=== PATIENT | female | born 2000 | race Caucasian/White ===

== ENCOUNTER 2022-10-18 15:50 | Emergency (ER) | payer BC, SELFPAY ==
[2022-10-18 15:58] VITALS: BP 105/76; PULSE 61; RESP 18; TEMP 36.7; O2SAT 98
--- NOTE | 2022-10-18 16:00 | RT.EKG_ITS ---
APPROVED REPORT Exam: Resting ECG Reason for Exam: Syncope Patient Location: E HR:52 bpm ECG Measurements Heart Rate 52 AXIS AZ 155 P 24 QRSd 81 QRS 49 QT 443 T 34 QTc 411 Conclusion Sinus bradycardia...rate< 60 Narrow complex sinus bradycardia at a rate of 52. Normal axis. Intervals within normal limits. No acute injury pattern. No prior for comparison.
--- NOTE | 2022-10-18 16:32 | W.ED.GENAD ---
Discharge Plan Disposition Patient Disposition: Home Discharge Details Clinical Impression: Mild traumatic brain injury, Syncope Primary Care Provider: Letty Mcfarland ED Provider: Sin Salas Home Meds and New Rx's Prescriptions: New ondansetron 4 mg tablet,disintegrating 4 mg PO BID 5 Days Qty: 10 0RF Continued citalopram [Celexa] 10 MG tablet 10 mg PO DAILY Patient Comments: pt has not started taking although she should be. 06/19/16 rl gabapentin 100 MG capsule 100 mg PO BID Patient Comments: Med had been Dc'd and switching to Celexa. 06/19/16 rl albuterol sulfate [ProAir HFA] 8.5 GM HFA aerosol inhaler 8.5 gm Inhalation PRN PRN fluticasone propionate [Flovent HFA] 12 GM HFA aerosol inhaler 2 puff Inhalation PRN PRN omeprazole magnesium [Prilosec OTC] 20 MG tablet,delayed release (DR/EC) 20 mg PO DAILY Control Discharge Instructions Instructions: Syncope (ED) Additional Instructions: You are seen in the emergency department following your episode of fainting. Your EKG shows that your heart is working normally. Your nausea vomiting and headache are likely secondary to your mild traumatic brain injury. Please take this prescription for nausea medicines as directed. As we discussed, please avoid screen time or any activities that make you dizzy or lead to difficulty concentrating. If you develop any weakness any recurrent falls or any vomiting that does not stop please return to the emergency department. For your pain please take medications as follows: 1. Take acetaminophen (Tylenol), 1,000 mg (two 500 mg tabs) every 6 hours 2. Take ibuprofen (Advil), 400 mg every 6 hours. Discharge Data Discharge Date/Time-TO BE ENTERED AT DEPARTURE: 10/18/22 16:44 Medical Decision Making This is an overall quite well-appearing normothermic and not tachycardic 21-year-old female with most likely mild traumatic brain injury secondary to syncope complicated by head strike for which she will received symptomatic treatment. Her syncopal episode certainly seems triggered as result of hypovolemia given her preceding vomiting and diarrhea for 3 days. She was having no preceding chest pain to suggest PE. No black nor bloody stools to suggest acute GI bleed. It certainly possible that she has electrolyte derangements at that point time however given that she has been tolerating p.o. subsequently with no emesis in two days, I am not suspicious for any acute electrolyte abnormalities I did not feel that the patient required labs. Will obtain a twelve-lead ECG. No indication for CT head based on Brazilian CT head rule. Brazilian Head CT Criteria Major Criteria GCS < 15 : [No] Open or depressed skull Fx: [No] Sign of Basilar Skull Fx: [No] > 2 Episodes Vomiting: [No] Anticoagulation: [No] Age > 65: [No] Minor Criteria Retrograde Amnesia >30min: [No] Dangerous Mechanism: [No] Per Brazilian head CT rules, CT head not obtained. The patient had a GCS of 15, no open/depressed skull fracture, no signs of basilar skull fracture (hemotympanum, raccoon eyes, dumont's sign, CSF Lavon/Rhinorrhea), no vomiting, and is less than 65 years of age. Cardiac arrhythmia/EKG or abnormalities considered: 1. ACS: No ST changes 2. Tachy-luciano: No blocks 3. WPW: No delta wave 4. Brugada: No RSR'; R-bundle appearance 5. HCM: No LVH; needle Qs/ T-wave inversions 6. Short/ Long QT: 300 < QTc < 500; no family hx 7. Arrhythmogenic Right Ventricular Dysplasia: No epsilon wave, no inverted Ts in anterior precordium 8. No signs of ASD ECG showed narrow complex sinus bradycardia at a rate of 52. Normal axis. Intervals within normal limits. No acute injury pattern. No prior for comparison. 4:45 PM Patient unfortunately did not receive her ondansetron acetaminophen or ibuprofen as she was discharged prior to medication. We discussed post concussive symptoms and gradual return to activities. I advised ED return for recurrent syncope. HPI General Date/Time Provider Initiated Documentation: 10/18/22 15:57. HPI Narrative: This is a previously healthy 21-year-old female up-to-date with immunizations arriving following a syncopal episode with head strike 4 days ago. Patient reports that prior to her head strike she had had 3 days of vomiting and diarrhea for which she was concerned for food poisoning. She is currently studying in [employer] and reportedly was at a rotation when she fainted and hit her head. She struck her head on a clinical table. She was able to subsequently get up and ambulate. Subsequently however she has been intermittently dizzy and nauseous. She has vomited several times but has not vomited in 2 days. She had no preceding chest pain or shortness of breath prior to her syncopal episode. No preceding exertion. She did have some abdominal discomfort when she had her episode of food poisoning but this has slowly resolved. She rarely smokes tobacco. She reports being a recovering alcoholic and has not had any drinks in the past 11 days. There is no family history of any sudden cardiac . Related Data Home Medications Medication Instructions Recorded Confirmed Control 06/19/16 albuterol sulfate 90 mcg/actuation 8.5 gm inhalation PRN PRN 06/19/16 06/19/16 aerosol inhaler (ProAir HFA) citalopram 10 mg tablet (Celexa) 10 mg PO DAILY 06/19/16 06/19/16 fluticasone propionate 110 2 puff inhalation PRN PRN 06/19/16 06/19/16 mcg/actuation HFA aerosol inhaler (Flovent HFA) gabapentin 100 mg capsule 100 mg PO BID 06/19/16 06/19/16 omeprazole magnesium 20 mg 20 mg PO DAILY 06/19/16 06/19/16 tablet,delayed release (Prilosec OTC) ondansetron 4 mg disintegrating 4 mg PO BID 5 days #10 tabs 10/18/22 tablet Previous Rx's Medication Instructions Recorded ondansetron 4 mg disintegrating 4 mg PO BID 5 days #10 tabs 10/18/22 tablet Allergies Allergy/AdvReac Type Severity Reaction Status Date / Time penicillin G AdvReac Intermediate Skin Rash Unverified 06/19/16 16:11 General Stated Complaint: Dizzy/Sync AN: 3 PFSH All Active Problems (Updated 10/18/22 @ 16:32 by Sin Salas MD) Mild traumatic brain injury (Acute) Syncope (Chronic) Social History Smoking risk assessment performed?: No Do you feel safe in your relationship?: Yes Exam Narrative Exam Narrative: General: Well-appearing in no acute distress speaking in complete sentences. Head: Normocephalic, atraumatic. Eye: Pupils equal, round reactive to light. Extraocular eye movements intact. No conjunctival injection. No scleral icterus. Ear, nose, mouth, throat: Grossly normal inspection. Normal voice, handling secretions normally. No hemotympanum bilaterally. Neck: Trachea midline. Cardiovascular: Well-perfused distal extremities. Regular rate and rhythm. No murmurs. Respiratory: Nonlabored respiration. Clear lungs bilaterally Gastrointestinal: Nondistended abdomen. Soft nontender. Musculoskeletal: No edema. Moving all 4 extremities spontaneously. Skin: Normal for age and race, grossly normal temperature and turgor. No acute rash. Neurologic: Alert and appropriate, no apparent acute deficits. GCS 15. Psychiatric: Mood and manner are appropriate. Grooming and personal hygiene are appropriate. Course Vital Signs Vital signs: Vital Signs Temperature 36.7 C 10/18/22 15:58 Pulse 61 10/18/22 15:58 Respiratory Rate 18 10/18/22 15:58 Blood Pressure 105/76 10/18/22 15:58 Pulse Oximetry 98 10/18/22 15:58 Temperature 36.7 C 10/18/22 15:58 Temperature Source Skin 10/18/22 15:58 Pulse 61 10/18/22 15:58 Respiratory Rate 18 10/18/22 15:58 Blood Pressure 105/76 10/18/22 15:58 Blood Pressure Position Sitting 10/18/22 15:58 Pulse Oximetry 98 10/18/22 15:58 Oxygen Delivery Method Room Air 10/18/22 15:58 Oxygen Flow Rate 0 10/18/22 15:58 Pain Level 6 10/18/22 15:58
== END 2022-10-18 16:44 | disposition home or self-care (01) ==
LOC: ER 16:42
PROVIDERS: Emergency Provider Emergency Medicine; PCP Family Medicine
DX: S06.9XAA Unspecified intracranial injury with loss of consciousness status unknown, initial encounter (principal); W01.10XA Fall on same level from slipping, tripping and stumbling with subsequent striking against unspecified object, initial encounter
CPT/HCPCS: 93005; 99283; 93010; 99284

== ENCOUNTER 2022-12-29 15:22 | Outpatient (REF) | payer BC, SELFPAY ==
[2022-12-31 09:44] LABS: HBs Antibody, Quant <3.1 mIU/mL (See Note); Hepatitis B Surface Ab Negative (See Note)
== END 2022-12-29 15:23 | disposition home or self-care (01) ==
LOC: NCHCN 15:22
PROVIDERS: PCP Family Medicine; Visit Provider Family Medicine
DX: Z00.00 Encounter for general adult medical examination without abnormal findings (principal); Z11.59 Encounter for screening for other viral diseases; Z01.84 Encounter for antibody response examination
CPT/HCPCS: 86706

== ENCOUNTER 2024-04-04 13:02 | Outpatient (REF) | payer BC, SELFPAY ==
--- NOTE | 2024-04-04 08:30 | PAPFT_PTH ---
PATIENT: Valarie Berumen LOC: [facility] U#:[id number] AGE/SX: 23/F ROOM: RE04/04/[address]: Letty Mcfarland : 2000 BED: DIS: 04/04/2024 SPEC #: [id number] RECD: 04/04/24 17:26 STATUS: LYLY BOWIE #: [id number] LES: 04/04/24 08:[address]: Letty Mcfarland DEPT: [facility] Cytology RECD BY: Yesenia Agudelo Tissues: 1 - CX/ENDOCX FOR PAP SMEARS Procedures: PAP THIN PREP/[facility] Screening Comments: [id number] (CHLAMYDIA/GC)
[2024-04-05 12:18] LABS: Chlamydia Result Negative (Negative); GC Result Negative (Negative)
== END 2024-04-04 13:03 | disposition home or self-care (01) ==
LOC: LBN 13:02
PROVIDERS: PCP Family Medicine; Visit Provider Family Medicine
DX: Z12.4 Encounter for screening for malignant neoplasm of cervix (principal)
CPT/HCPCS: 87491; 87591; 88142

== ENCOUNTER 2025-05-08 16:16 | Outpatient (REF) | payer BC, SELFPAY ==
[2025-05-08 22:11] LABS: TSH 3.09 uIU/mL (0.55-4.78)
[2025-05-09 17:07] LABS: T3, Total 108 ng/dL (82-158)
== END 2025-05-08 16:17 | disposition home or self-care (01) ==
LOC: NCHCN 16:16
PROVIDERS: PCP Family Medicine; Visit Provider Family Medicine
DX: R63.5 Abnormal weight gain (principal)
CPT/HCPCS: 84439; 84443; 84480